=== PATIENT | male | born 1940 | race Caucasian/White ===

== ENCOUNTER 2018-01-28 09:08 | Day surgery (SDC) | payer MEDICARE, OTHER ==
[~2018-01-28 09:08] MED LIST: Lactated Ringers 1,000 ML IV SCH
[2018-01-28] MEDS ORDERED: Propofol 200 MG/20 ML SDV ONE (10:22)
[2018-01-28] MEDS ORDERED: fentaNYL 100 MCG/2 ML SDV ONE (10:22)
[2018-01-28 12:18] VITALS: BP 129/65
--- NOTE | 2018-01-28 12:40 | OR ---
PREOPERATIVE DIAGNOSIS: Reflux disease. POSTOPERATIVE DIAGNOSIS: Reflux disease. PROCEDURE PERFORMED: EGD with antral biopsy. INDICATION: The patient is a 78-year-old male with history of ongoing reflux symptoms, presents for EGD for further evaluation. This was done in the endoscopy suite. PROCEDURE IN DETAIL: Sedation was given per Anesthesia. First, the scope was introduced into pharynx, across the esophagus, into the stomach, across the pylorus, into the 1st and 2nd portion of the duodenum. The 1st and 2nd portion of the duodenum were normal. Scope was slowly withdrawn, retroflexed. The patient had a moderate-sized hiatal hernia present. I did do 2 antral biopsies for H. pylori. Scope was slowly withdrawn showing moderate esophagitis. FINAL DIAGNOSES: 1. Esophagitis. 2. Moderate-sized hiatal hernia. PLAN: He has been previously prescribed Carafate, which he has not started yet. He is currently on Protonix. I did recommend that he continue with the Carafate as he has not tried it yet and essentially if his symptoms do not resolve with that and with the Protonix, he would be a reasonable candidate for fundoplication. BKD: 01/28/2018 11:48:04 MODL: 01/28/2018 12:26:38 /[id number]
== END 2018-01-28 13:00 | disposition home or self-care (01) ==
LOC: VM.SDS 09:08
PROVIDERS: ATTEND Surgery
DX: K29.50 Unspecified chronic gastritis without bleeding (principal); K44.9 Diaphragmatic hernia without obstruction or gangrene; K31.89 Other diseases of stomach and duodenum; I10 Essential (primary) hypertension; E11.9 Type 2 diabetes mellitus without complications; E78.5 Hyperlipidemia, unspecified; F33.41 Major depressive disorder, recurrent, in partial remission; K21.9 Gastro-esophageal reflux disease without esophagitis; Z79.899 Other long term (current) drug therapy; Z79.82 Long term (current) use of aspirin
CPT/HCPCS: 00731; 43239; 88305; 88341; 88342; J2704; J3010; J7120

== ENCOUNTER 2024-11-30 22:44 | Emergency (ER) | payer MEDICARE ==
[2024-11-30] MEDS: Acetaminophen 500 MG Tab PO ONE (23:10)
[2024-11-30 23:23] LABS: BASOPHILS PERCENT AUTO 0.2 % (0.2-1.2); EOSINOPHILS PERCENT AUTO 0.2 % (0.0-4.0); HEMATOCRIT 39.9 % (40.0-52.0); HEMOGLOBIN 14.1 g/dL (14.0-18.0); IMMATURE GRAN ABSOLUTE AUTO 0.03 x10^3/uL (0.00-0.07); LYMPHOCYTES ABSOLUTE AUTO 0.9 x10^3/uL (1.0-4.8); LYMPHOCYTES PERCENT AUTO 9.9 % (25.0-50.0); MEAN CORPUSCULAR HEMOGLOBIN 31.5 pg (26.0-32.0); MEAN CORPUSCULAR HGB CONC 35.3 g/dL (32.0-36.0); MEAN CORPUSCULAR VOLUME 89.3 fL (78.0-93.0); MONOCYTES ABSOLUTE AUTO 1.2 x10^3/uL (0.0-0.8); MONOCYTES PERCENT AUTO 13.4 % (2.0-11.0); PLATELET COUNT,PLT 143 x10^3/uL (130-400); RED BLOOD CELL COUNT 4.47 x10^6/uL (4.5-6.0); WHITE BLOOD CELL COUNT,WBC 9.3 x10^3/uL (4.0-10.0)
[2024-11-30 23:35] LABS: A/G RATIO 0.83; BILIRUBIN TOTAL 0.5 mg/dL (0.2-1.0); C-REACTIVE PROTEIN 2.72 mg/dL (<=0.50); CALCIUM 8.8 mg/dL (8.5-10.1); CREATININE 1.4 mg/dL (0.70-1.30); EST CRCL DRUG DOSING (CG) 41.28 mL/min; POTASSIUM,K 4.1 mmol/L (3.5-5.1); PROTEIN TOTAL,TP 6.6 g/dL (6.4-8.2)
[2024-11-30 23:36] LABS: ANION GAP 14.1 mmol/L (5-15)
[2024-11-30] MEDS ORDERED: Sodium Chloride 0.9% 10 ML Syringe FLUSH PRN (23:55)
[2024-12-01] MEDS: Dexamethasone 4 MG/ML SDV IVPUSH ONE (00:08)
[2024-12-01] MEDS: cefTRIAXone 2 GM Vial IVPUSH ONE (00:08)
[2024-12-01] MEDS: Albuterol/Ipratropium 3.0-0.5 MG/3 ML Neb Soln NEB ONE (00:08)
[2024-12-01] MEDS: Azithromycin 500 MG in Sodium Chloride 0.9% 250 ML IV ONE (00:09)
[2024-12-01 00:56] VITALS: BP 158/72
[2024-12-01 00:57] VITALS: PULSE 76
== END 2024-12-01 01:22 | disposition home or self-care (01) ==
LOC: VM.ED 22:44
DX: J18.9 Pneumonia, unspecified organism (principal); I10 Essential (primary) hypertension; E78.00 Pure hypercholesterolemia, unspecified; K21.9 Gastro-esophageal reflux disease without esophagitis; E11.9 Type 2 diabetes mellitus without complications; Z95.5 Presence of coronary angioplasty implant and graft; Z79.82 Long term (current) use of aspirin; Z79.899 Other long term (current) drug therapy
CPT/HCPCS: 36415; 71045; 80053; 85025; 86140; 87428-QW; 94640; 96365; 96375; 99284; 99285-25; A9270-GY; J0456; J0696; J1100; J7050; J7620-GY